=== PATIENT | male | born 1950 | race Hispanic/Latino ===

== ENCOUNTER 2024-03-14 19:28 | Inpatient (IN) | payer OTHER, MEDICARE ==
[~2024-03-14] VITALS: Ht 160 cm; Wt 49.9 kg
--- NOTE | 2024-03-14 19:48 | ERN ---
ED Note History of Present Illness Stated Complaint: RIGHT EYE INJURY Dictation: This is a 74-year-old very pleasant male who was brought in by family with a history of fall and sustaining injury to the left side of his head resulting in a small laceration above the left eyebrow He did not lose consciousness. He is not on any anticoagulation therapy. He stated that he has fallen last night as well as this morning when he was in the toilet and as he got fell forward and hit his left side of the head on the doorframe He also reported that he fell off from the bed as he turned and landed on the floor this week Temperature 98.2 pulse 72 respirations 22 blood pressure 137/72 with a pulse oximetry of 99% on room air His chronic medical problems include diabetes mellitus. Daily alcohol use Allergies: Coded Allergies: No Known Drug Allergies (Unverified Allergy, Unknown, 03/14/24) Past Medical History Past Medical History: Diabetes-Type II Family History: Negative Social History: ETOH RN Note Reviewed/Agreed w/PFSH: Yes Review of System Dictation Constitutional: Negative for fever,chills, and weight loss Eyes: Negative for injury, pain,redness, and discharge ENT: Negative for injury,pain or swelling Cardiovascular: Negative for chest pain, palpitations, and edema Respiratory: Negative for shortness of breath, cough, and wheezing, Abdomen/GI: Negative for abdominal pain, nausea, vomiting, diarrhea, and constipation Back: Negative for injury and pain : Negative for injury, bleeding and discharge MS/Extremity: Negative for injury and deformity Skin: Negative for rash, and discoloration Neuro: Positive for headache, generalized weakness, denies numbness, tingling, and seizure Psych: Negative for suicide ideation, homicidal ideation, and hallucinations Initial Vital Sign VS Vital Signs Date Time Temp Pulse Resp B/P (MAP) Pulse Ox O2 Delivery O2 Flow Rate FiO2 03/14/24 19:52 98.2 72 18 137/72 99 0 03/14/24 19:58 Room Air* 21 Physical Exam Dictation General: awake, alert, NAD frail very thin pleasant male Head/Face: Normocephalic, small laceration above the left eyebrow surrounding swelling Eyes: PERRL, EOMI, vision at baseline ENT: oral cavity clear, TMs clear, no signs of infection Neck: Trachea midline, supple, no nuchal rigidity Cardiovascular: RRR, normal S1/S2, No MRGs, no JVD Respiratory: Unlabored bilateral coarse rhonchi Abdomen: Soft, non-tender, non-distended, normal bowel sounds, no guarding or rebound. Skin: Warm, dry, normal turgor, no rash MS/Extremity: Pulses equal, no cyanosis, neurovascular intact, FROM Neuro: COAx4, GCS 15, strength 5/5, CN 2-12 intact, normal cerebellar exam, normal gait, Psych: Normal behavior, mood, and affect normal Extremities-trace edema without any palpable cords, Homans sign is negative Results (Laboratory/Radiology) Laboratory/Radiology Laboratory Tests Test 03/14/24 20:00 White Blood Count 10.3 K/uL (4.8-10.8) Red Blood Count 3.43 MIL/uL (4.50-6.20) L Hemoglobin 10.2 g/dL (14.0-18.0) L Hematocrit 30.3 % (42-54) L Mean Corpuscular Volume 88.3 fL (79-99) Mean Corpuscular Hemoglobin 29.7 pg (27.0-33.0) Mean Corpuscular Hemoglobin Concent 33.7 g/dL (32.0-36.0) Red Cell Distribution Width 13.7 % (11.0-15.5) Platelet Count 259 K/uL (130-400) Mean Platelet Volume 11.3 fL (7.5-10.5) H Immature Granulocyte % (Auto) 0.5 % (0-1) Neutrophils (%) (Auto) 53.1 % (40.0-77.0) Lymphocytes (%) (Auto) 34.6 % (21.0-51.0) Monocytes (%) (Auto) 9.0 % (3.0-13.0) Eosinophils (%) (Auto) 2.5 % (0.0-8.0) Basophils (%) (Auto) 0.3 % (0.0-5.0) Neutrophils # (Auto) 5.5 K/uL (1.8-7.7) Lymphocytes # (Auto) 3.6 K/uL (1.0-4.8) Monocytes # (Auto) 0.9 K/uL (0.1-1.0) Eosinophils # (Auto) 0.26 K/uL (0.00-0.70) Basophils # (Auto) 0.03 K/uL (0.00-0.20) Absolute Immature Granulocyte (auto 0.05 K/uL (0-1) Nucleated Red Blood Cells 0.0 % (0.0-0.19) Sodium Level 131 mmol/L (136-145) L Potassium Level 3.8 mmol/L (3.5-5.1) Chloride Level 95 mmol/L (101-111) L Carbon Dioxide Level 24 mmol/L (21-32) Blood Urea Nitrogen 20 mg/dL (7-18) H Creatinine 1.1 mg/dL (0.5-1.3) Glomerular Filtration Rate Calc 71 mL/min (>90) Random Glucose 161 mg/dL (70-105) H Total Calcium 9.0 mg/dL (8.5-10.1) Total Creatine Kinase 71 U/L (21-232) Troponin I High Sensitivity 7.4 ng/L (4-75) Serum Alcohol 195 mg/dL (0-10) H Labs Reviewed?: Yes CT Scan Comment: PATIENT: KATINA TINAJERO MR#: [id number] : 1950 SEX: M AGE: 74 LOCATION: [facility] ORDER 40 STATUS: REG REPORT#: [id number] SERVICE 37 REASON: fall with right amish lac, h/o etoh eval [facility] ORDERING PHYSICIAN: SUSAN VILLATORO MD PROCEDURE: HEAD WO - CT HEAD/BRAIN W/O CONTRAST Exam Type: CT HEAD/BRAIN W/O CONTRAST Clinical Information: fall with right amish lac, h/o etoh eval [facility] Comparison: None CT Dose Index (CTDI): 57.33 mGy Dose Length Product (DLP): 956.79 total mGy-cm Findings: The examination shows atrophy. There is low attenuation throughout the periventricular white matter locations, consistent with chronic small vessel ischemic changes. No acute intra- or extra-axial fluid collections are seen. There is no evidence of acute or chronic hemorrhage. There is no mass effect or shift of midline structures. There are no areas to suggest acute infarct. The skull windows show no significant abnormalities. IMPRESSION: 1. ATROPHY AND CHRONIC SMALL VESSEL ISCHEMIC CHANGES. This study was performed using dose reduction techniques to include automated exposure control and/or adjustment of the mA and/or kV according to patient size. DICTATED BY: ANDER DUNN MD DATE: 03/14/242024 ELECTRONICALLY SIGNED BY: ANDER DUNN MD DATE: 03/14/242031 ED Course ED Course Orders Procedure Category Date Status Time Cbc With Differential LAB 03/14/24 Complete 19:38 Cardiac Panel LAB 03/14/24 Complete 19:38 Urinalysis Profile LAB 03/14/24 Logged 19:38 Chest 1vw RAD 03/14/24 Resulted 19:38 Ct Head/Brain W/O CT 03/14/24 Resulted Contrast 19:38 12 Lead Ekg Tracing- EKG 03/14/24 Logged Technical 19:38 Basic Metabolic Panel LAB 03/14/24 Complete 19:38 Alcohol, Blood LAB 03/14/24 Complete 19:38 0.9%Nacl 1000ml (Ns PHA 03/14/24 Complete 1000ml) 21:30 Thiamine Hcl (Vitamin PHA 03/14/24 Complete B-1) 21:30 M.V.I. Iv [Adult] PHA 03/14/24 In Process (M.V.I. Iv [Adult])... 22:00 Current Medications Medications (Trade) Dose Ordered Sig/Anu Route PRN Reason Start Time Stop Time Status Last Admin Dose Admin Multivitamins/ Minerals 10 ml/ Folic Acid 1 mg/ Thiamine HCl 100 mg/Sodium Chloride 1,010 ml @ 75 mls/hr Q24H IV 03/14/24 22:00 04/13/24 21:59 Sodium Chloride 1,000 ml @ 0 mls/hr ONCE ONCE IV 03/14/24 21:30 03/14/24 21:22 DC Thiamine HCl (Vitamin B-1) 100 mg ONCE ONCE IVP 03/14/24 21:30 03/14/24 21:22 DC Vital Signs Date Time Temp Pulse Resp B/P (MAP) Pulse Ox O2 Delivery O2 Flow Rate FiO2 03/14/24 19:58 98.2 72 18 137/72 99 Room Air* 0 21 03/14/24 19:52 98.2 72 18 137/72 99 0 We will perform diagnostic labs, advanced imaging and administer medications according to the patient's complaint. Once the results are available, will review and personally interpreted the labs to rule out any acute life- threatening emergency the trach require immediate intervention and treatment. I will then re-evaluate the patient after treatment and diagnostic exams have return to determine whether the patient requires any further testing, can safely be discharged home or need further admission to hospital for additional treatment and evaluation. Labs reviewed CBC showed a white count of 10.3 hemoglobin of 10.2 BNP 7 shows a sodium of 131 chloride 95 BUN and creatinine are 20 and 1.1 tropo nins are negative ETOH level 195 Chest x-ray shows fine prominence of the markings but no focal infiltrate. CT scan of the head was negative for any subdural hemorrhage or ICH but shows diffuse atrophic changes and small-vessel disease With multiple falls, advanced age, alcohol intoxication, I recommended admission to the hospital for 24 hours to monitor him due to closed head injury with laceration he is agreeable 10:15 p.m. patient accepted by who is covering for for admission and further management Medical Decision Making MDM MDM: Differential diagnosis: Rationale: Tests considered and ordered secondary to shared decision making include: labs, ECG and radiology Previous outside records reviewed: Old ER visits. Risk of complication and/or morbidity or mortality of patient management: None Medications-Per medication reconciliation Need for hospitalization: Patient does meet criteria for hospitalization. Need for emergency major/minor surgery: No There are no social concerns with this patient. Prescription drug management Prescriptions will include symptomatic care Patient's prior external medical records from other ER visits were reviewed by me as indicated. Prior testing and results from previous visits were reviewed. Prior tests were taken into account with medical decision making and resource utilization, independent historian/historians were used to obtain complete medical history. I independently interpreted the test that were performed, results were reviewed by me and considered findings on radiology if ordered. Medical management and examination interpretation discussions were had by me with other qualified healthcare professionals as indicated for the patient's care. Problem List Problem List: (1) Fall from standing (2) Closed head injury (3) Alcohol intoxication (4) Severe dehydration (5) Acute kidney injury (6) Diabetes mellitus (7) Anemia DX & DISP Disposition: Inpatient Decision to Admit Time: 21:18 Departure Impression: Primary Impression: Fall from standing Additional Impressions: Closed head injury, Alcohol intoxication, Severe dehydration, Diabetes mellitus, Anemia, Acute kidney injury Condition: Stable Additional Instructions: Patient was informed of all the diagnostic labs and procedures conducted in the emergency room today and demonstrated understanding of the results. I personally reviewed and interpreted all the diagnostic exams performed in the ER today. The patient will be admitted to the hospital for further treatment and evaluation. Disposition-admit to facility Condition-stable/guarded Course-uncertain at this time Pain status-decreased Assessment-exam unchanged Admission Certification- I certify that the patients status is appropriate and is based on my best clinical judgment and the patient's condition as documented in the medical records Referrals: NONE (PCP) SUSAN VILLATORO MD Mar 14, 2024 19:48
[2024-03-14 20:12] LABS: BASOPHILS # (AUTO) 0.03 K/uL (0.00-0.20); BASOPHILS % (AUTO) 0.3 % (0.0-5.0); EOSINOPHILS # (AUTO) 0.26 K/uL (0.00-0.70); EOSINOPHILS % (AUTO) 2.5 % (0.0-8.0); HEMATOCRIT 30.3 % (42-54); IMMATURE GRANULOCYTE ABSOLUTE 0.05 K/uL (0-1); LYMPHOCYTES # (AUTO) 3.6 K/uL (1.0-4.8); LYMPHOCYTES % (AUTO) 34.6 % (21.0-51.0); MEAN CORPUSCULAR HEMOGLOBIN 29.7 pg (27.0-33.0); MEAN CORPUSCULAR HGB CONC 33.7 g/dL (32.0-36.0); MEAN CORPUSCULAR VOLUME 88.3 fL (79-99); MONOCYTES # (AUTO) 0.9 K/uL (0.1-1.0); NEUTROPHILS # (AUTO) 5.5 K/uL (1.8-7.7); NEUTROPHILS % (AUTO) 53.1 % (40.0-77.0); PLATELET COUNT (AUTO) 259 K/uL (130-400); RED BLOOD CELL COUNT(AUTO) 3.43 MIL/uL (4.50-6.20); RED CELL DISTRIBUTION WIDTH 13.7 % (11.0-15.5); WHITE BLOOD COUNT (AUTO) 10.3 K/uL (4.8-10.8)
[2024-03-14 20:21] LABS: CREATININE 1.1 mg/dL (0.5-1.3); POTASSIUM 3.8 mmol/L (3.5-5.1)
--- NOTE | 2024-03-14 20:32 | HMCIMG ---
Exam Type: CT HEAD/BRAIN W/O CONTRAST Clinical Information: fall with right samaritan lac, h/o etoh eval SD[facility] Comparison: None CT Dose Index (CTDI): 57.33 mGy Dose Length Product (DLP): 956.79 total mGy-cm Findings: The examination shows atrophy. There is low attenuation throughout the periventricular white matter locations, consistent with chronic small vessel ischemic changes. No acute intra- or extra-axial fluid collections are seen. There is no evidence of acute or chronic hemorrhage. There is no mass effect or shift of midline structures. There are no areas to suggest acute infarct. The skull windows show no significant abnormalities. IMPRESSION: 1. ATROPHY AND CHRONIC SMALL VESSEL ISCHEMIC CHANGES. This study was performed using dose reduction techniques to include automated exposure control and/or adjustment of the mA and/or kV according to patient size.
[2024-03-14] MEDS ORDERED: 0.9%NACL 1000ML 1,000 ML IV ONE (21:30)
[2024-03-14] MEDS ORDERED: THIAMINE HCL 100 MG/ML 2ML VIAL IVP ONE (21:30)
--- NOTE | 2024-03-14 21:30 | HMCIMG ---
Exam Type: CHEST 1VW Clinical Information: SYNCOPE Comparison: None Findings: The lungs are clear of infiltrates. The heart is enlarged. Bony and soft tissue structures of the chest wall are unremarkable. IMPRESSION: Cardiomegaly. Clear lungs.
[2024-03-14] MEDS: M.V.I. IV [ADULT] 10 ML, FOLic ACID 5 MG/ML VIAL 1 MG, THIAMINE HCL 100 MG in 0.9%NACL ... IV SCH (22:15)
--- NOTE | 2024-03-14 22:15 | NUR ---
ASSUMED PT CARE
[2024-03-14] MEDS ORDERED: PoTASSium chloRIDE 20MEQ ER 20 MEQ ERTAB PO PRN (22:30)
[2024-03-14] MEDS ORDERED: ondanSETRON 4MG INJ IVP PRN (22:30)
[2024-03-14] MEDS ORDERED: PoTASSium chl 10% ELIXIR 20MEQ 20 MEQ/15 ML UDCUP PO PRN (22:30)
[2024-03-14] MEDS ORDERED: PoTASSium chloRIDE 20MEQ/100ML 100 ML IV PRN (22:30)
[2024-03-14] MEDS ORDERED: PHARMACY COMMUNICATION MISC PRN (22:30)
[2024-03-14] MEDS: OCTYL 2-CYANOACRYLATE 1 EACH TP SCH (22:30)
[2024-03-15] MEDS: teTANUS/diphthERIA TOXOID [ADULT] 0.5 ML VIAL IM ONE (00:22)
[2024-03-15] MEDS: acetaMINOPHEN 325 MG TAB PO PRN (00:23)
[2024-03-15] MEDS: LORazepam 0.5 MG TABLET PO ONE (00:26)
--- NOTE | 2024-03-15 05:29 | NUR ---
ORTHO VS FOLLOWS: LYING 122/65 STANDING 120/56 STANDING 121/55
--- NOTE | 2024-03-15 05:31 | NUR ---
MEDS NOT RECON, NOT AVAIL AT BEDSIDE
[2024-03-15 06:48] LABS: APPEARANCE,URINE CLEAR (CLEAR); BILIRUBIN,URINE NEGATIVE (NEGATIVE); GLUCOSE, URINE (UA) >=1000 mg/dL (NEGATIVE); KETONES,URINE NEGATIVE (NEGATIVE); LEUKOCYTE ESTERASE ,URINE NEGATIVE Leu/uL (NEGATIVE); NITRATE,URINE NEGATIVE (NEGATIVE); OCCULT BLOOD,URINE NEGATIVE (NEGATIVE); UROBILINOGEN,URINE 0.2 mg/dL (0.2-1.0)
--- NOTE | 2024-03-15 07:02 | EKG ---
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
[2024-03-15 07:09] LABS: ADD UA MICROSCOPIC YES; COLOR,URINE LIGHT-YELLOW (YELLOW); PROTEIN,URINE 30 mg/dL (NEGATIVE)
[2024-03-15 07:10] LABS: RBC,URINE 0-1 /HPF (0-1); WBC,URINE 0-1 /HPF (0-1)
[2024-03-15 07:11] LABS: MUCUS,URINE RARE LPF (None Seen)
[2024-03-15 07:29] LABS: BASOPHILS # (AUTO) 0.03 K/uL (0.00-0.20); BASOPHILS % (AUTO) 0.4 % (0.0-5.0); EOSINOPHILS # (AUTO) 0.22 K/uL (0.00-0.70); EOSINOPHILS % (AUTO) 2.6 % (0.0-8.0); HEMATOCRIT 30.9 % (42-54); IMMATURE GRANULOCYTE ABSOLUTE 0.02 K/uL (0-1); LYMPHOCYTES # (AUTO) 2.3 K/uL (1.0-4.8); LYMPHOCYTES % (AUTO) 26.6 % (21.0-51.0); MEAN CORPUSCULAR HEMOGLOBIN 29.2 pg (27.0-33.0); MEAN CORPUSCULAR HGB CONC 33.3 g/dL (32.0-36.0); MEAN CORPUSCULAR VOLUME 87.5 fL (79-99); MONOCYTES # (AUTO) 0.9 K/uL (0.1-1.0); MONOCYTES % (AUTO) 10.9 % (3.0-13.0); NEUTROPHILS % (AUTO) 59.3 % (40.0-77.0); PLATELET COUNT (AUTO) 275 K/uL (130-400); RED BLOOD CELL COUNT(AUTO) 3.53 MIL/uL (4.50-6.20); RED CELL DISTRIBUTION WIDTH 13.7 % (11.0-15.5); WHITE BLOOD COUNT (AUTO) 8.5 K/uL (4.8-10.8)
[2024-03-15 07:44] LABS: CREATININE 1.1 mg/dL (0.5-1.3); MAGNESIUM 1.8 mg/dL (1.80-2.40); POTASSIUM 4.7 mmol/L (3.5-5.1)
[2024-03-15] MEDS ORDERED: M.V.I. IV [ADULT] 10 ML, FOLic ACID 5 MG/ML VIAL 1 MG, THIAMINE HCL 100 MG in 0.9%NACL ... IV SCH (09:00)
--- NOTE | 2024-03-15 10:11 | HP ---
DATE OF SERVICE: 03/15/2024 PRESENTING COMPLAINT: Fall. HISTORY OF PRESENT ILLNESS: A 74-year-old male with history of diabetes mellitus, hypertension, chronic alcoholism, who presented to the Emergency Room with fall. Patient claims he fell twice in the last few days. In the ER, the patient was found with small ulceration to the left eyebrow area. CT of the brain was done, which came back unremarkable. The patient denies any loss of consciousness. The patient found with alcohol level of 195 in the Emergency Room. He was confused. No family at the bedside. No documented nausea, vomiting or abdominal pain. CT of the brain came back unremarkable. Chest x-ray showed clear lungs. PAST MEDICAL HISTORY: * Diabetes mellitus. * Alcoholism. * Hypertension. PAST SURGICAL HISTORY: None documented. ALLERGIES: No known drug allergy. MEDICATIONS: To be reviewed when made available. SOCIAL HISTORY: Lives alone. Drinks. No tobacco or illicit drug use. FAMILY HISTORY: Positive for diabetes mellitus. REVIEW OF SYSTEMS: Available history obtained from ER note. The patient is not a good historian due to alcohol intoxication. No family at bedside. PHYSICAL EXAMINATION: GENERAL: Elderly male, ill looking, malnourished. VITAL SIGNS: Temperature 98.2, pulse 72, respiratory rate 18, BP 137/72. EYES: No icterus. Pupils equal and reactive. HENT: No oral thrush seen. Moist oral mucosa. Laceration to the left eyebrow. NECK: Supple, no JVD or thyromegaly. LUNGS: Good air entry. No rales, no rhonchi. CARDIOVASCULAR: S1, S2 regular. No murmur heard. ABDOMEN: Full, soft. Bowel sound is present. CENTRAL NERVOUS SYSTEM: The patient is awake, confused. No focal deficits. SKIN: No rashes, no itchiness. LYMPHATIC: No peripheral lymphadenopathy. BACK: No deformity, no pressure ulcer. MUSCULOSKELETAL: No joint swelling, erythema or tenderness. LABORATORY DATA: Alcohol level 195. Sodium 131, potassium 2.0, BUN 20, creatinine 1.1. WBC 10.3, hemoglobin 10.2, platelet 251. Urinalysis negative. RADIOLOGY: CT of the head unremarkable. Chest x-ray showed clear lungs. ASSESSMENT: A 74-year-old male presented to hospital with fall. Current problems include: * Alcohol intoxication. * Mechanical fall. * History of diabetes mellitus. * Malnutrition. PLAN: * The patient admitted to medical floor with telemetry. * The patient will be placed on CIWA protocol. * The patient placed on banana bag. * Lispro sliding scale. * ADA diet. * Potassium protocol. * Magnesium protocol. * Home medication will be reconciled. * Fall precaution. TID: [id number] RECEIPT: [id number]
--- NOTE | 2024-03-15 10:35 | NUR ---
DCP: HOME Sw me with pt who states he felt dizzy while in shower and fell. Pt lives a his jayme with Mayra Shea [phone]. Pt reports that he remains active and independent. Completes ADLS on his own. Uses no DME or in home care services. PCP is Dr Anderson and uses [facility] for rx. Pt denies dc needs and will return home, to transport Addendum: 03/15/24 at 1037 by SRIRAM WATTS SS Amended: Links added.
[2024-03-15] MEDS: LORazepam 2 MG/ML 1 ML VIAL IVP PRN (18:56)
[2024-03-15] MEDS: MAGNESIUM 2GM PREMIX 50ML 50 ML IV PRN (20:11)
--- NOTE | 2024-03-15 22:42 | PN ---
DATE OF SERVICE: 03/15/2024 SUBJECTIVE: The patient is seen and examined at bedside today. The patient has had no fever, no chills. No chest pain, no palpitation or orthopnea. No bleeding tendency. Denied depression. No suicidal ideation. No heat or cold intolerance. No slurred speech or limb weakness. PHYSICAL EXAMINATION: VITAL SIGNS: Temperature 98.5. EYES: No icterus, no conjunctival hemorrhage. HENT: No oral thrush seen. Moist oral mucosa. NECK: Supple, no JVD or thyromegaly. LUNGS: Good air entry. No rales, no rhonchi. CARDIOVASCULAR: S1, S2 regular. No murmur heard. ABDOMEN: Obese, soft, nontender. Bowel sounds present. CENTRAL NERVOUS SYSTEM: Awake, alert, oriented x3. No focal deficits. SKIN: No rashes, no itchiness. LYMPHATIC: No peripheral lymphadenopathy. BACK: No deformity, no pressure ulcer. ASSESSMENT: A 74-year-old male with fall. Current problems include: * Alcohol intoxication. * Mechanical fall. * Diabetes mellitus. * Left eyebrow laceration. PLAN: * Continue patient on banana bag. * Continue CIWA protocol. * Continue antidiabetic. * Continue antiemetic. * Monitor electrolytes and correct as needed. * The patient will be followed up closely. TID: [id number] RECEIPT: [id number]
[2024-03-15 23:30] VITALS: BP 164/87; PULSE 80; RESP 19; TEMP 97.4
--- NOTE | 2024-03-15 23:30 | NUR ---
admit note admit to room 403 via stretcher from er, patient awake, alert, ox3, no sob, no c/o pain at this time, patient calm, cooperative, ivf infusing well, no home meds brought from home, placed on fall precautions, naty arce
[2024-03-16 03:53] LABS: HEMATOCRIT 30.9 % (42-54); MEAN CORPUSCULAR HEMOGLOBIN 29.8 pg (27.0-33.0); MEAN CORPUSCULAR VOLUME 87.8 fL (79-99); RED BLOOD CELL COUNT(AUTO) 3.52 MIL/uL (4.50-6.20); RED CELL DISTRIBUTION WIDTH 13.8 % (11.0-15.5); WHITE BLOOD COUNT (AUTO) 8.2 K/uL (4.8-10.8)
[2024-03-16 04:00] VITALS: BP 136/59; PULSE 63; RESP 19; TEMP 98.8
[2024-03-16 04:17] LABS: ALBUMIN 3.5 g/dL (3.5-5.0); BILIRUBIN,TOTAL 0.5 mg/dL (0.2-1.0); MAGNESIUM 2.4 mg/dL (1.80-2.40); POTASSIUM 4.1 mmol/L (3.5-5.1); TOTAL PROTEIN, SERUM 7.3 g/dL (6.0-8.3)
[2024-03-16] MEDS: INSULIN LISpro 100 UNIT/ML 3ML SQ SCH (06:34)
[2024-03-16] MEDS ORDERED: COMPOUND IV REFRIGERATED 1 EACH IVSOLN MISC PRN (07:30)
[2024-03-16 08:00] VITALS: BP 130/73; PULSE 68; RESP 15; TEMP 98
[2024-03-16 12:00] VITALS: BP 153/74; PULSE 71; RESP 16; TEMP 97.9
[2024-03-16] MEDS ORDERED: GLIP1TAB6 PO (12:07)
--- NOTE | 2024-03-16 13:32 | NUR ---
SCD'S WENT TO APPLY SCD'S. INSTRUCTED IT IS FOR DVT PROPHYLAXIS. PATIENT STILL CONTINUES TO REFUSE APPLICATION OF SCD'S
--- NOTE | 2024-03-16 13:45 | NUR ---
AA MEETING INFORMATION PROVIDED BY DIRECTORY ASSISTANCE OPERATOR. PATIENT DECLINED NEED, STATES DOES NOT DRINK ALCOHOL. STATED HE FELL IN THE SHOWER AND WAS NOT DRINKING AT THE TIME.
--- NOTE | 2024-03-16 13:56 | NUR ---
SUBSTANCE ABUSE RESOURCES Sw met with pt to provide substance abuse resources. Pt states he did not ask for them and did not want them. "I fell in the shower because I got dizzy, not because I was drinking." Sw updated nurse
[2024-03-16 16:00] VITALS: BP 148/73; PULSE 65; RESP 17; TEMP 97.8
[2024-03-16] MEDS ORDERED: IOHEXOL-350 50ML VIAL IV ONE (17:03)
--- NOTE | 2024-03-16 19:35 | PN ---
INFECTIOUS DISEASE PROGRESS NOTE Date of Service: Mar 16, 2024 SUBJECTIVE: This is a 74-year-old male patient who was admitted to the hospital after sustaining a fall. Patient was seen and examined at bedside in room 403. Patient is sitting up on the edge of the bed. Awake alert and oriented x3. Patient has a laceration above the left eyebrow area with some left eye periorbital edema. A CT of the head done on admission showed atrophy and chronic small-vessel ischemic changes. We will obtain a maxillofacial CT to rule out fracture. No fever, temperature is 97.9 and a WBC of 8.2. Hemoglobin is stable at 10.5. Will continue to follow patient's care. PHYSICAL EXAM EYES: Anicteric. Pupils equal and reactive. Left eye periorbital edema. HENT: No oral thrush seen, moist Oral mucosa. Laceration above left eyebrow. NECK: Supple, no JVD or thyromegaly. LUNGS: Good air entry. No rales, no rhonchi. CARDIOVASCULAR: S1, S2 regular. No murmur heard. ABDOMEN: Soft, non tender, bowel sounds present, no organomegaly CENTRAL NERVOUS SYSTEM: Awake, alert, oriented x 3. SKIN: No rashes, no swelling. LYMPHATICS: No peripheral lymphadenopathy MUSCULOSKELETAL: No joint swelling, erythema or tenderness. EXTREMITIES: No cyanosis or clubbing BACK: No deformity, no pressure ulcer. GENITOURINARY: No dysuria or hematuria. Vital Sign (Last 12 Hours) 03/16/24 03/16/24 03/16/24 03/16/24 07:30 08:00 12:00 12:00 Temp 98.1 97.9 97.9 Pulse 68 71 71 Resp 15 16 16 B/P (MAP) 130/73 153/74 153/74 Pulse Ox 98 97 97 O2 Delivery Room Air* Room Air Room Air Room Air O2 Flow Rate 0 0.0 0.0 0.0 FiO2 21 03/16/24 16:00 Temp 97.9 Pulse 65 Resp 17 B/P (MAP) 148/73 Pulse Ox 98 O2 Delivery Room Air O2 Flow Rate 0.0 Intake & Output (last 24hrs) 03/15/24 03/15/24 03/16/24 15:00 23:00 07:00 Intake Total 980.0 ml Output Total 700 ml 1200 ml Balance -700 ml -220.0 ml LABS: Laboratory: Test 03/16/24 16:34 03/16/24 03:27 03/15/24 06:36 03/15/24 06:27 Range/Units Whole Blood Glucose 251 H 70-110 MG/DL White Blood Count 8.2 4.8-10.8 K/uL Red Blood Count 3.52 L 4.50-6.20 MIL/uL Hemoglobin 10.5 L 14.0-18.0 g/dL Hematocrit 30.9 L 42-54 % Mean Corpuscular Volume 87.8 79-99 fL Mean Corpuscular Hemoglobin 29.8 27.0-33.0 pg Mean Corpuscular Hemoglobin Concent 34.0 32.0-36.0 g/dL Red Cell Distribution Width 13.8 11.0-15.5 % Platelet Count 245 130-400 K/uL Mean Platelet Volume 11.5 H 7.5-10.5 fL Nucleated Red Blood Cells 0.0 0.0-0.19 % Sodium Level 135 L 136-145 mmol/L Potassium Level 4.1 3.5-5.1 mmol/L Chloride Level 99 L 101-111 mmol/L Carbon Dioxide Level 28 21-32 mmol/L Blood Urea Nitrogen 19 H 7-18 mg/dL Creatinine 1.0 0.5-1.3 mg/dL Glomerular Filtration Rate Calc 80 >90 mL/min Random Glucose 403 *H 70-105 mg/dL Total Calcium 9.2 8.5-10.1 mg/dL Magnesium Level 2.40 1.80-2.40 mg/dL Total Bilirubin 0.5 0.2-1.0 mg/dL Aspartate Amino Transf (AST/SGOT) 17 10-37 U/L Alanine Aminotransferase (ALT/SGPT) 22 12-78 U/L Alkaline Phosphatase 104 50-136 U/L Total Protein 7.3 6.0-8.3 g/dL Albumin 3.5 3.5-5.0 g/dL Immature Granulocyte % (Auto) 0.2 0-1 % Neutrophils (%) (Auto) 59.3 40.0-77.0 % Lymphocytes (%) (Auto) 26.6 21.0-51.0 % Monocytes (%) (Auto) 10.9 3.0-13.0 % Eosinophils (%) (Auto) 2.6 0.0-8.0 % Basophils (%) (Auto) 0.4 0.0-5.0 % Neutrophils # (Auto) 5.0 1.8-7.7 K/uL Lymphocytes # (Auto) 2.3 1.0-4.8 K/uL Monocytes # (Auto) 0.9 0.1-1.0 K/uL Eosinophils # (Auto) 0.22 0.00-0.70 K/uL Basophils # (Auto) 0.03 0.00-0.20 K/uL Absolute Immature Granulocyte (auto 0.02 0-1 K/uL Urine Color LIGHT-YELLOW YELLOW Urine Appearance CLEAR CLEAR Urine pH 5.0 5.0-8.0 Urine Specific [place] 1.009 1.001-1.031 Urine Protein 30 H NEGATIVE mg/dL Urine Glucose (UA) >=1000 H NEGATIVE mg/dL Urine Ketones NEGATIVE NEGATIVE mg/dL Urine Occult Blood NEGATIVE NEGATIVE Urine Nitrate NEGATIVE NEGATIVE Urine Bilirubin NEGATIVE NEGATIVE mg/dL Urine Urobilinogen 0.2 0.2-1.0 mg/dL Urine Leukocyte Esterase NEGATIVE NEGATIVE Caroline/uL Urine RBC 0-1 0-1 /HPF Urine WBC 0-1 0-1 /HPF Urine Bacteria None None Seen /HPF Test 03/14/24 20:00 Range/Units Total Creatine Kinase 71 21-232 U/L Troponin I High Sensitivity 7.4 4-75 ng/L Serum Alcohol 195 H 0-10 mg/dL ASSESSMENT: Status post mechanical fall. Laceration above left eyebrow. Alcohol intoxication. Diabetes mellitus. PLAN: Obtain a Maxillofacial CT to rule out fracture. Continue CIWA protocol. Glucometer checks a.c./hs and cover with insulin per sliding scale protocol. We will monitor and replace electrolytes. Continue fall prevention measures. This case was reviewed and discussed with my supervising physician and the above assessment and plan was formulated and agreed upon. ATTESTATION BY PHYSICIAN I have seen and examined the patient. I reviewed the documentation, medical decision making, and treatment plan as noted by the mid-level provider above. I agree with the findings and plan of care. MINNIE CINTRON MD, MIRTA L METAL CABINET FINISHER Mar 16, 2024 19:34
[2024-03-16 20:00] VITALS: BP 163/88; PULSE 82; RESP 17; TEMP 98; O2SAT 100
[2024-03-16] MEDS: GLIPIZIDE METFORMIN PO SCH (20:31)
[2024-03-17 02:24] VITALS: BP 146/67; PULSE 63; RESP 19; TEMP 98
[2024-03-17 04:27] LABS: BASOPHILS # (AUTO) 0.04 K/uL (0.00-0.20); BASOPHILS % (AUTO) 0.4 % (0.0-5.0); EOSINOPHILS # (AUTO) 0.27 K/uL (0.00-0.70); EOSINOPHILS % (AUTO) 2.5 % (0.0-8.0); HEMATOCRIT 28.4 % (42-54); IMMATURE GRANULOCYTE ABSOLUTE 0.04 K/uL (0-1); LYMPHOCYTES % (AUTO) 28.1 % (21.0-51.0); MEAN CORPUSCULAR HEMOGLOBIN 29.5 pg (27.0-33.0); MEAN CORPUSCULAR HGB CONC 33.1 g/dL (32.0-36.0); MONOCYTES # (AUTO) 1.2 K/uL (0.1-1.0); NEUTROPHILS # (AUTO) 6.2 K/uL (1.8-7.7); NEUTROPHILS % (AUTO) 57.6 % (40.0-77.0); PLATELET COUNT (AUTO) 250 K/uL (130-400); RED BLOOD CELL COUNT(AUTO) 3.19 MIL/uL (4.50-6.20); WHITE BLOOD COUNT (AUTO) 10.7 K/uL (4.8-10.8)
[2024-03-17 04:40] LABS: CREATININE 1.1 mg/dL (0.5-1.3); MAGNESIUM 1.8 mg/dL (1.80-2.40); POTASSIUM 4.1 mmol/L (3.5-5.1)
[2024-03-17 04:57] VITALS: BP 148/79; PULSE 68; RESP 17; TEMP 97.9
[2024-03-17 08:00] VITALS: BP 139/66; PULSE 63; RESP 20; TEMP 97.7
[2024-03-17] MEDS: glipiZIDE 5MG TABLET PO SCH (09:21)
[2024-03-17 12:04] VITALS: BP 149/66; PULSE 64; RESP 20; TEMP 97.8
--- NOTE | 2024-03-17 13:51 | HMCIMG ---
CT MAXILLOFACIAL W/WO CONTRAST CLINICAL HISTORY: Pain COMPARISON: None TECHNIQUE: Multiple sequential high-resolution axial images of the facial bones were obtained. Postprocessing coronal reconstruction images were also obtained. . CT was performed with one or more of the following dose reduction techniques: automated exposure control, adjustment of the mA and/or kV according to patient size, or use of iterative reconstruction technique. The study was conducted with and without 15 mL of Omnipaque 350. FINDINGS: There is comminuted bilateral nasal bone fractures. The orbits and orbital contents are unremarkable. The there is medial deviation of the medial wall of the right orbit with no associated soft tissue abnormality likely represents remote trauma. The pain zygomatic arches and maxilla and mandible are intact. There is a left supraorbital scalp laceration. IMPRESSION: Left supraorbital scalp laceration with no underlying orbital fracture. Note is made of comminuted bilateral nasal bone fractures with minimal displacement.
[2024-03-17 16:00] VITALS: BP 144/70; PULSE 63; RESP 20; TEMP 97.9
--- NOTE | 2024-03-17 17:20 | PN ---
INFECTIOUS DISEASE PROGRESS NOTE Date of Service: Mar 17, 2024 SUBJECTIVE: 72-year-old male patient being seen today at bedside. Awake, alert and oriented x3. at this time patient denies any pain. No chest pain, or shortness of breadth. Patient denies any abdominal discomfort. No diarrhea or constipation. He denies any dysuria or hematuria. CT of maxillafacial pending. No acute events are being reported during this visit. PHYSICAL EXAM EYES: Anicteric. Pupils equal and reactive. Left eye periorbital edema. HENT: No oral thrush seen, moist Oral mucosa. Laceration above left eyebrow. NECK: Supple, no JVD or thyromegaly. LUNGS: Good air entry. No rales, no rhonchi. CARDIOVASCULAR: S1, S2 regular. No murmur heard. ABDOMEN: Soft, non tender, bowel sounds present, no organomegaly CENTRAL NERVOUS SYSTEM: Awake, alert, oriented x 3. SKIN: No rashes, no swelling. LYMPHATICS: No peripheral lymphadenopathy MUSCULOSKELETAL: No joint swelling, erythema or tenderness. EXTREMITIES: No cyanosis or clubbing BACK: No deformity, no pressure ulcer. GENITOURINARY: No dysuria or hematuria. Vital Sign (Last 12 Hours) 03/17/24 03/17/24 03/17/24 08:00 12:04 16:00 Temp 97.7 97.9 97.9 Pulse 63 64 63 Resp 20 20 20 B/P (MAP) 139/66 149/66 144/70 Pulse Ox 97 98 99 O2 Delivery Room Air Room Air Room Air Intake & Output (last 24hrs) 0 03/16/24 03/16/24 03/17/24 15:00 23:00 07:00 Intake Total 50.0 ml 500.0 ml Output Total 300 ml Balance 50.0 ml 200.0 ml LABS: Laboratory: Test 03/17/24 15:37 03/17/24 03:46 03/16/24 03:27 Range/Units Whole Blood Glucose 234 H 70-110 MG/DL White Blood Count 10.7 4.8-10.8 K/uL Red Blood Count 3.19 L 4.50-6.20 MIL/uL Hemoglobin 9.4 L 14.0-18.0 g/dL Hematocrit 28.4 L 42-54 % Mean Corpuscular Volume 89.0 79-99 fL Mean Corpuscular Hemoglobin 29.5 27.0-33.0 pg Mean Corpuscular Hemoglobin Concent 33.1 32.0-36.0 g/dL Red Cell Distribution Width 14.0 11.0-15.5 % Platelet Count 250 130-400 K/uL Mean Platelet Volume 12.3 H 7.5-10.5 fL Immature Granulocyte % (Auto) 0.4 0-1 % Neutrophils (%) (Auto) 57.6 40.0-77.0 % Lymphocytes (%) (Auto) 28.1 21.0-51.0 % Monocytes (%) (Auto) 11.0 3.0-13.0 % Eosinophils (%) (Auto) 2.5 0.0-8.0 % Basophils (%) (Auto) 0.4 0.0-5.0 % Neutrophils # (Auto) 6.2 1.8-7.7 K/uL Lymphocytes # (Auto) 3.0 1.0-4.8 K/uL Monocytes # (Auto) 1.2 H 0.1-1.0 K/uL Eosinophils # (Auto) 0.27 0.00-0.70 K/uL Basophils # (Auto) 0.04 0.00-0.20 K/uL Absolute Immature Granulocyte (auto 0.04 0-1 K/uL Nucleated Red Blood Cells 0.0 0.0-0.19 % Sodium Level 138 136-145 mmol/L Potassium Level 4.1 3.5-5.1 mmol/L Chloride Level 103 101-111 mmol/L Carbon Dioxide Level 26 21-32 mmol/L Blood Urea Nitrogen 22 H 7-18 mg/dL Creatinine 1.1 0.5-1.3 mg/dL Glomerular Filtration Rate Calc 71 >90 mL/min Random Glucose 247 H 70-105 mg/dL Total Calcium 8.6 8.5-10.1 mg/dL Magnesium Level 1.80 1.80-2.40 mg/dL Total Bilirubin 0.5 0.2-1.0 mg/dL Aspartate Amino Transf (AST/SGOT) 17 10-37 U/L Alanine Aminotransferase (ALT/SGPT) 22 12-78 U/L Alkaline Phosphatase 104 50-136 U/L Total Protein 7.3 6.0-8.3 g/dL Albumin 3.5 3.5-5.0 g/dL ASSESSMENT: Status post mechanical fall. Laceration above left eyebrow. Alcohol intoxication. Diabetes mellitus. PLAN: Obtain a Maxillofacial CT to rule out fracture. Continue CIWA protocol. Glucometer checks a.c./hs and cover with insulin per sliding scale protocol. We will monitor and replace electrolytes. Continue fall prevention measures. This case was reviewed and discussed with my supervising physician and the above assessment and plan was formulated and agreed upon. SANDRA OBRIEN Mar 17, 2024 17:20
--- NOTE | 2024-03-17 17:25 | NUR ---
SPOKE TO PATIENT REGARDING GENERAL SURGERY CONSULT FOR CT MAXILLOFACIAL RESULTS, STATES HE THOUGHT HE WAS GOING TO BE DISCHARGED TODAY PER DR. CINTRON. EXPLAINED TO PATIENT NO PLAN FOR DISCHARGE AT THIS TIME DUE TO NEW CONSULT AND CT MAXILLOFACIAL RESULTS. STATES HE WOULD LIKE TO SPEAK TO DR. CINTRON. CALL MADE TO DR. CINTRON, SPOKE TO PATIENT OVER PHONE REGARDING PLAN OF CARE, MD CLARIFIED TO PATIENT NO PLAN FOR DISCHARGE TODAY DUE TO PENDING GENERAL SURGERY RECOMMENDATIONS AND REASON FOR CONSULT. PATIENT STATES HE WOULD LIKE TO GO HOME TODAY, DR. CINTRON STATES HE MAY LEAVE TODAY AGAINST MEDICAL ADVICE. PATIENT VERBALIZED UNDERSTANDING, STATES HE WOULD LIKE TO LEAVE AMA. DR. CINTRON AWARE. MARTIN EL MADE AWARE. TOWEL SEWER MADE AWARE.
--- NOTE | 2024-03-17 18:00 | NUR ---
FAMILY AT BEDSIDE, MADE AWARE OF REASON PATIENT REQUESTED TO LEAVE AMA, MADE AWARE OF CT MAXILLOFACIAL RESULTS AND DR. CINTRON'S RECOMMENDATION FOR GENERAL SURGERY CONSULT, NO PLAN FOR INTERVENTION REGARDING CT RESULTS AT THIS TIME DUE TO GENERAL SURGEON PENDING TO SEE PATIENT, MADE AWARE HAD EXPLAINED TO PT AND HAD DR. CINTRON SPEAK TO PATIENT OVER PHONE AND DISCUSSED PLAN OF CARE AND [facility]ONE[facility] RECOMMENDED DISCHARGE FOR TOMORROW AND PT REQUESTED TO LEAVE TODAY AND AWARE IT WOULD BE AGAINST MEDICAL ADVICE. FAMILY VERBALIZED UNDERSTANDING.
== END 2024-03-17 18:19 | disposition left against medical advice (07) | DRG 125 ==
LOC: EDH 19:28 → EDHIP 22:15 → OBSVTOIN 22:15 → 4AH 03-15 23:14
PROVIDERS: ADMIT Internal Medicine Infectious Disease; ATTEND Internal Medicine Infectious Disease
DX: S01.112A Laceration without foreign body of left eyelid and periocular area, initial encounter (principal); E46 Unspecified protein-calorie malnutrition; N17.9 Acute kidney failure, unspecified; Z68.1 Body mass index [BMI] 19.9 or less, adult; E11.9 Type 2 diabetes mellitus without complications; D64.9 Anemia, unspecified; E86.0 Dehydration; F10.229 Alcohol dependence with intoxication, unspecified; I10 Essential (primary) hypertension; Y90.6 Blood alcohol level of 120-199 mg/100 ml; Z83.3 Family history of diabetes mellitus; W06.XXXA Fall from bed, initial encounter; Y93.89 Activity, other specified; Y92.89 Other specified places as the place of occurrence of the external cause; Y99.8 Other external cause status
CPT/HCPCS: 36415; 70450; 70488; 71045; 80048; 80053; 81001; 82550; 82948; 83735; 84484; 85025; 85027; 90714; 93005; 99285; G0378; J2060; J3411; J3475; J3490; J7030; Q9967